=== PATIENT | female | born 1990 | race Native Hawaiian/Other Pacific Islander ===

== ENCOUNTER 2018-01-10 18:35 | Inpatient (IN) | payer OTHER ==
[2018-01-10] MEDS ORDERED: Sodium Chloride 0.9% 1,000 ML IV ONE (20:47)
--- NOTE | 2018-01-10 20:47 | C.PDOC ---
History Of Present Illness Reyes Nielsen is a 27 year old female, who presents to the emergency department complaining of right sided abdominal pain that began since this morning at 11AM. Patient reports she is one month and her last menstrual cycle was on 12/10/2017. Patient states losing consciousness twice, one at home and the second time in the emergency room. Patient denies any chest pain, shortness of breath, headache, fever, chills, cough, nausea, vomiting, diarrhea, changes in bowel habits, dysuria, hematuria, frequency, flank pain, or vaginal bleeding or discharge. Time Seen by Provider: 01/10/18 20:40 Chief Complaint (Nursing): Abdominal Pain History Per: Patient History/Exam Limitations: no limitations Onset/Duration Of Symptoms: Hrs Current Symptoms Are (Timing): Still Present Radiation Of Pain To:: None Associated Symptoms: denies: Fever, Chills, Nausea, Chest Pain Exacerbating Factors: None Alleviating Factors: None Recent travel outside of the [place]: No Abnormal Vaginal Bleeding: No Past Medical History Reviewed: Historical Data, Nursing Documentation, Vital Signs Vital Signs: Last Vital Signs Temp 98.1 F 01/10/18 20:17 Pulse 81 01/10/18 21:53 Resp 15 01/10/18 21:53 BP 108/69 01/10/18 21:53 Pulse Ox 100 01/10/18 21:53 - Medical History PMH: No Chronic Diseases Surgical History: No Surg Hx Family History: States: No Known Family Hx - Social History Hx Tobacco Use: No Hx Alcohol Use: No Hx Substance Use: No Review Of Systems Constitutional: Negative for: Fever, Chills Cardiovascular: Negative for: Chest Pain Respiratory: Negative for: Cough, Shortness of Breath Gastrointestinal: Positive for: Abdominal Pain (right sided abdominal pain). Negative for: Nausea, Vomiting, Diarrhea Genitourinary: Negative for: Dysuria, Frequency, Hematuria, Vaginal Bleeding Skin: Negative for: Rash Neurological: Negative for: Numbness, Headache Physical Exam - Physical Exam Appears: Well, Non-toxic, In Acute Distress Skin: Normal Color, Warm, Dry Head: Atraumatic, Normacephalic Eye(s): bilateral: Normal Inspection, PERRL, EOMI Oral Mucosa: Moist Chest: No Tenderness Cardiovascular: Rhythm Regular (tachycardic), No Murmur Respiratory: Normal Breath Sounds, No Decreased Breath Sounds, No Rales, No Rhonchi, No Wheezing Gastrointestinal/Abdominal: No Normal Exam, Bowel Sounds (high pitch bowel sound ), Tenderness (tenderness on right sided region), No Distention, Guarding Extremity: Normal ROM Neurological/Psych: Oriented x3, Normal Speech, Normal Cognition, Normal Sensation ED Course And Treatment - Laboratory Results Result Diagrams: 01/10/18 21:09 01/10/18 21:09 Lab Interpretation: Abnormal (Elevated WBC, BHCG 430) O2 Sat by Pulse Oximetry: 98 (room air) Pulse Ox Interpretation: Normal - CT Scan/US Pelvic ultrasound Other Rad Studies (CT/US): Read By Radiologist, Radiology Report Reviewed CT/US Interpretation: Accession No. : [id number]. Patient Name / ID : ALO VALIENTE / [id number]. Exam Date : 01/10/2018 21:58:47 ( Approved ). Study Comment : Sex / Age : F / 27Y. Creator : Omid Choe MD. Dictator : Private Inquiry Agent : Sheet Writer : Omid Choe MD. Approver2 : Report Date : 09/2018 22:55:00. My Comment : . [facility] Division of Radiology. [address] [place] [address]. Tel. no. . . . Patient Name: REYES NIELSEN . Pt. Address: [address] [place] [address] Med. Rec #: [id number]. [place] [address]: Mary Jo Mccurdy MD. Pt Phone: Order Location: [facility] : 1990 Female Age: 27 Order #: [id number]. Reason for exam: with abdominal pain. . . . . . Ultrasound. . . PELVIS/TRANSVAG US Exam Date: 01/10/18. . This imaging exam was performed at [facility]. EXAM: US First Trimester, Transabdominal. . CLINICAL HISTORY: 27 years old, female; Pain; Other: Pelvic pain; Gestational age or lmp: 12-10-17; Additional info: with abdominal pain. . TECHNIQUE: Real-time transabdominal obstetrical ultrasound of the maternal pelvis and a. first trimester with image documentation. . COMPARISON: No relevant prior studies available. . FINDINGS: Gestation: No intrauterine gestational sac. Uterus/cervix: Endometrium: 1.9 cm in thickness. Closed cervix. Ovaries: RIGHT ovary: Normal. LEFT ovary: 2.8 x 3.0 x 3.1 cm anechoic. lesion. LEFT ovary: 2.0 x 2.0 x 2.0 cm anechoic lesion. 4.1 x 5.3 x 4.5 cm. heterogeneous lesion within left adnexal region. Free fluid: Small to moderate free fluid within abdomen. Small to moderate. complex free fluid within pelvis. . IMPRESSION: 1. No intrauterine gestation. DDX: Early IUP, missed , ectopic. . 2. Left adnexal lesion, indeterminate. Ectopic not excluded. 3. Complex free fluid, likely hemorrhage. 4. LEFT ovarian cysts. 5. Incidental/ non-acute findings are described above. . . . EXAM: US , Transvaginal. . CLINICAL HISTORY: 27 years old, female; Pain; Other: Pelvic pain; Gestational age or lmp: 12-10-17; Additional info: with abdominal pain. . TECHNIQUE: Real-time transvaginal obstetrical ultrasound of the maternal pelvis and a. first trimester with image documentation. Transvaginal imaging was. used for better evaluation of the fetus and adnexa. . COMPARISON: No relevant prior studies available. . FINDINGS: Gestation: No intrauterine gestational sac. Uterus/cervix: Endometrium: 1.9 cm in thickness. Closed cervix. Ovaries : RIGHT ovary: Normal. LEFT ovary: 2.8 x 3.0 x 3.1 cm anechoic. lesion. LEFT ovary: 2.0 x 2.0 x 2.0 cm anechoic lesion. 4.1 x 5.3 x 4.5 cm. heterogeneous lesion within left adnexal region. Free fluid: Small to moderate free fluid within abdomen. Small to moderate. complex free fluid within pelvis. . IMPRESSION: 1. No intrauterine gestation. DDX: Early IUP, missed , ectopic. . 2. Left adnexal lesion, indeterminate. Ectopic not excluded. 3. Complex free fluid, likely hemorrhage. 4. LEFT ovarian cysts. 5. Incidental/non-acute findings are described above. . Dictated By: Omid Choe MD. Dictated Date/Time: 01/10/182254. Signed By: Omid Choe MD. Date Signed: 01/10/182254. Transcribed By: [employer]. Transcribe Date/Time: 01/10/182254. ACYP02/MT - Physician Consult Information Outcome Of Conversation: Patient was seen by Dr Arellano in ED. Preliminary US done at bedside showing free fluid in pelvis. Patient taken to OR. Medical Decision Making Medical Decision Making: Impression: 27 y/o female with tenderness on right sided region c/o abdominal pain on right side since this morning and is 1 month Plan: -- Ultrasound -- Labs -- Sodium Chloride -- Reassess and disposition Disposition - Disposition Disposition: HOSPITALIZED Disposition Time: 23:04 Condition: SERIOUS - Clinical Impression Clinical Impression: Ruptured ectopic - Scribe Statement The provider has reviewed the documentation as recorded by the Sharona Mcgovernibe Attestation: Toshia Mcgovernibe Attestation: All medical record entries made by the Scribe were at my direction and personally dictated by me. I have reviewed the chart and agree that the record accurately reflects my personal performance of the history, physical exam, medical decision making, and the department course for this patient. I have also personally directed, reviewed, and agree with the discharge instructions and disposition.
[2018-01-10 21:18] LABS: BASO % 0.2 % (0.0-2.0); EOS % 0.1 % (0.0-4.0); HEMOGLOBIN 12.1 g/dL (11.0-16.0); LYMPH # 1.2 K/uL (1.0-4.3); LYMPH % 9.3 % (20.0-40.0); MEAN CELL VOLUME 91.3 fL (81.0-99.0); MEAN CORPUSCULAR HEMOGLOBIN 30.7 pg (27.0-31.0); MEAN CORPUSCULAR HGB CONC 33.6 g/dL (33.0-37.0); MEAN PLATELET VOLUME 10.6 fL (7.2-11.7); MONO # 0.4 K/uL (0.0-0.8); MONO % 2.8 % (0.0-10.0); NEUT # 11.1 K/uL (1.8-7.0); NEUT % 87.6 % (50.0-75.0); PLATELET COUNT 172 K/uL (130-400); RBC 3.93 Mil/uL (3.80-5.20); RED CELL DISTRIBUTION WIDTH 13.4 % (11.5-14.5); WHITE BLOOD COUNT 12.7 K/uL (4.8-10.8)
[2018-01-10 21:31] LABS: ALB/GLOB RATIO 1.3 (1.0-2.1); ALT/SGPT 23 U/L (9-52); AST/SGOT 26 U/L (14-36); BLOOD UREA NITROGEN 12 mg/dL (7-17); CALCIUM 9.2 mg/dl (8.6-10.4); GFR AFRICAN-AMERICAN > 60; GFR NON-AFRICAN AMERICAN > 60
[2018-01-10] MEDS ORDERED: HYDROmorphone 1 mg/ml ISec IVP STA (21:52)
[2018-01-10 22:19] LABS: LYMPHOCYTE 10 % (20-40); MONOCYTE 1 % (0-10); NEUTROPHIL 89 % (50-75); TOTAL CELLS COUNTED 100
[2018-01-10 22:20] LABS: PLATELET ESTIMATE NORMAL (NORMAL)
--- NOTE | 2018-01-10 22:24 | CP.PCM.HP ---
History of Present Illness - History of Present Illness History of Present Illness: 27 y/o G1 witg LMP 12/10/2017 presents to ER with c/o severe right lower qudrant pain since morning.Patient states that pain started suddenly when she woke up and was eating breakfast.She had an episode of passing out at home and hence came to ER.Pain is 10/10 Patient had another episode of fainting in the ER She feels weak and tired PMH denies PSH denies OBGYN HX Social hx denies tobacco,alcohol or illicit drug use Present on Admission - Present on Admission Any Indicators Present on Admission: No Review of Systems - Review of Systems Systems not reviewed;Unavailable: Unstable Vital Signs - Cardiovascular Cardiovascular: absent: Chest Pain, Palpitations - Respiratory Respiratory: absent: Cough, Dyspnea - Gastrointestinal Gastrointestinal: Nausea. absent: Abdominal Pain, Vomiting - Reproductive: Female Reproductive:Female: Amenorrhea Past Patient History - Past Social History Smoking Status: Never Smoked - CARDIAC Hx Cardiac Disorders: No - PULMONARY Hx Respiratory Disorders: No - NEUROLOGICAL Hx Neurological Disorder: No - HEENT Hx HEENT Problems: No - RENAL Hx Chronic Kidney Disease: No - ENDOCRINE/METABOLIC Hx Endocrine Disorders: No - HEMATOLOGICAL/ONCOLOGICAL Hx Blood Disorders: No - INTEGUMENTARY Hx Dermatological Problems: No - MUSCULOSKELETAL/RHEUMATOLOGICAL Hx Musculoskeletal Disorders: No - GASTROINTESTINAL Hx Gastrointestinal Disorders: No - GENITOURINARY/GYNECOLOGICAL Hx Genitourinary Disorders: No - PSYCHIATRIC Hx Psychophysiologic Disorder: No Hx Substance Use: No - SURGICAL HISTORY Hx Surgeries: No - ANESTHESIA Hx Anesthesia: No Meds Allergies/Adverse Reactions: Allergies Allergy/AdvReac Type Severity Reaction Status Date / Time No Known Allergies Allergy Verified 01/10/18 20:47 Physical Exam - Constitutional Appears: Non-toxic - Head Exam Head Exam: ATRAUMATIC - Respiratory Exam Respiratory Exam: NORMAL BREATHING PATTERN - Cardiovascular Exam Cardiovascular Exam: REGULAR RHYTHM - GI/Abdominal Exam GI & Abdominal Exam: Rebound, Rigid, Soft, Tenderness - Extremities Exam Extremities exam: Negative for: calf tenderness - Neurological Exam Neurological exam: Alert, Oriented x3 - Psychiatric Exam Psychiatric exam: Normal Affect, Normal Mood - Skin Skin Exam: Pallor Results - Vital Signs Recent Vital Signs: Last Vital Signs Temp 98.1 F 01/10/18 20:17 Pulse 81 01/10/18 21:53 Resp 15 02/11/18 21:53 BP 108/69 01/10/18 21:53 Pulse Ox 100 01/10/18 21:53 - Labs Result Diagrams: 01/10/18 21:09 01/10/18 21:09 Labs: Laboratory Results - last 24 hr 01/10/18 01/10/18 01/10/18 21:09 21:09 21:09 WBC 12.7 H RBC 3.93 Hgb 12.1 Hct 35.9 MCV 91.3 MCH 30.7 MCHC 33.6 RDW 13.4 Plt Count 172 MPV 10.6 Neut % (Auto) 87.6 H Lymph % (Auto) 9.3 L Josephine % (Auto) 2.8 Eos % (Auto) 0.1 Baso % (Auto) 0.2 Neut # (Auto) 11.1 H Lymph # (Auto) 1.2 Josephine # (Auto) 0.4 Eos # (Auto) 0.0 Baso # (Auto) 0.0 Sodium 132 Potassium 3.5 L Chloride 98 Carbon Dioxide 20 L Anion Gap 17 BUN 12 Creatinine 0.6 L Est GFR ( Amer) > 60 Est GFR (Non-Af Amer) > 60 Random Glucose 133 H Calcium 9.2 Total Bilirubin 1.1 AST 26 ALT 23 Alkaline Phosphatase 53 Total Protein 7.1 Albumin 4.0 Globulin 3.1 Albumin/Globulin Ratio 1.3 Beta HCG, Quant 430.57 Blood Type O POSITIVE Antibody Screen Negative Assessment & Plan - Assessment and Plan (Free Text) Assessment: 27 y/o female with LMP 12/10/2017, presents to er with abdominal pain -acute abdomen on exam -ultrasound done.,complex fluid in the pelvis with ascites ?ruptured ectopic versus ruptured cyst findings discussed with patient reviewed need for surgical intervention Patient voices understanding the need for surgical intervention discussed exlap with possible salpingectomy, possible salpingo-oophorectomy with possible other procedures Risks of surgery discussed with patient type and cross for 2 units
[2018-01-10] MEDS ORDERED: Propofol 10 mg/ml Inj (20 ML) ONE (22:46)
[2018-01-10] MEDS ORDERED: ceFAZolin 1 gm in NS 1 GM/100 ML BAG IVPB ONE (22:46)
[2018-01-10] MEDS ORDERED: Midazolam 2 MG/2 ML VIAL ONE (22:50)
[2018-01-10] MEDS ORDERED: Succinylcholine Chloride 20 mg/ml Syr (5 ml) IV ONE (22:50)
[2018-01-10] MEDS ORDERED: Phenylephrine 10 mg/ml Inj ONE (22:50)
--- NOTE | 2018-01-10 22:56 | US ---
EXAM: US First Trimester, Transabdominal CLINICAL HISTORY: 27 years old, female; Pain; Other: Pelvic pain; Gestational age or lmp: 18; Additional info: with abdominal pain TECHNIQUE: Real-time transabdominal obstetrical ultrasound of the maternal pelvis and a first trimester with image documentation. COMPARISON: No relevant prior studies available. FINDINGS: Gestation: No intrauterine gestational sac. Uterus/cervix: Endometrium: 1.9 cm in thickness. Closed cervix. Ovaries: RIGHT ovary: Normal. LEFT ovary: 2.8 x 3.0 x 3.1 cm anechoic lesion. LEFT ovary: 2.0 x 2.0 x 2.0 cm anechoic lesion. 4.1 x 5.3 x 4.5 cm heterogeneous lesion within left adnexal region. Free fluid: Small to moderate free fluid within abdomen. Small to moderate complex free fluid within pelvis. IMPRESSION: 1. No intrauterine gestation. DDX: Early IUP, missed , ectopic . 2. Left adnexal lesion, indeterminate. Ectopic not excluded. 3. Complex free fluid, likely hemorrhage. 4. LEFT ovarian cysts. 5. Incidental/non-acute findings are described above. EXAM: US , Transvaginal CLINICAL HISTORY: 27 years old, female; Pain; Other: Pelvic pain; Gestational age or lmp: 18; Additional info: with abdominal pain TECHNIQUE: Real-time transvaginal obstetrical ultrasound of the maternal pelvis and a first trimester with image documentation. Transvaginal imaging was used for better evaluation of the fetus and adnexa. COMPARISON: No relevant prior studies available. FINDINGS: Gestation: No intrauterine gestational sac. Uterus/cervix: Endometrium: 1.9 cm in thickness. Closed cervix. Ovaries: RIGHT ovary: Normal. LEFT ovary: 2.8 x 3.0 x 3.1 cm anechoic lesion. LEFT ovary: 2.0 x 2.0 x 2.0 cm anechoic lesion. 4.1 x 5.3 x 4.5 cm heterogeneous lesion within left adnexal region. Free fluid: Small to moderate free fluid within abdomen. Small to moderate complex free fluid within pelvis.
[2018-01-10] MEDS ORDERED: ePHEDrine 50 mg/ml Inj ONE (23:24)
[2018-01-10] MEDS ORDERED: Neostigmine Methylsulfate 3mg/3ml Syringe IV ONE (23:33)
[2018-01-11] MEDS ORDERED: Oxycodone/Acetaminophen 5/325 mg Tab PO PRN (00:31)
[2018-01-11] MEDS ORDERED: HYDROmorphone 0.5 mg/0.5 ml ISec ONE (00:42)
[2018-01-11] MEDS ORDERED: cefOXitin IV 1 gm in Dextrose 1 GM/50 ML BAG IVPB SCH ×2 (00:45→07:45)
[2018-01-11 06:28] LABS: BASO % 0.2 % (0.0-2.0); MONO # 0.7 K/uL (0.0-0.8); MONO % 4.2 % (0.0-10.0)
[2018-01-11 06:35] LABS: LYMPH # 1.7 K/uL (1.0-4.3); MEAN CELL VOLUME 91.9 fL (81.0-99.0); MEAN CORPUSCULAR HEMOGLOBIN 30.5 pg (27.0-31.0); MEAN CORPUSCULAR HGB CONC 33.2 g/dL (33.0-37.0); MEAN PLATELET VOLUME 10.5 fL (7.2-11.7); NEUT # 14.4 K/uL (1.8-7.0); NEUT % 85.6 % (50.0-75.0); RBC 2.6 Mil/uL (3.80-5.20); RED CELL DISTRIBUTION WIDTH 13.1 % (11.5-14.5); WHITE BLOOD COUNT 16.8 K/uL (4.8-10.8)
[2018-01-11 06:52] LABS: HEMOGLOBIN 7.9 g/dL (11.0-16.0)
[2018-01-11] MEDS ORDERED: DiphenhydrAMINE 50 mg/ml Inj IVP PRN (07:21)
[2018-01-11] MEDS ORDERED: Naloxone 0.4 mg/ml Inj (Adult) IVP PRN (07:21)
[2018-01-11] MEDS ORDERED: Sodium Chloride 0.9% 1,000 ML IV ONE (08:47)
--- NOTE | 2018-01-11 08:47 | CP.PCM.PN ---
<Yane Love - Last Filed: 01/11/18 08:47> Subjective - Date & Time of Evaluation Date of Evaluation: 01/11/18 Time of Evaluation: 09:00 - Subjective Subjective: [employer] progess note Patient seen and examined at bedside. Patient had surgery late last night for apparent ruptured ovarian cyst. Patient still complaining of severe abdominal pain, cramping in nature, similar to what she was experiencing yesterday. Patient is lethargic, weak, though responding to questions appropriately. Denies chest pain, shortness of breath, fever, or chills, nausea, vomiting. 12- point ROS was obtained as was negative, except as above. Objective - Vital Signs/Intake and Output Vital Signs (last 24 hours): Temp Pulse Resp BP Pulse Ox 99.3 F 66 18 83/51 L 100 01/11/18 08:29 01/11/18 08:26 01/11/18 08:26 01/11/18 08:26 01/11/18 08:04 Intake and Output: 01/11/18 01/11/18 06:59 18:59 Intake Total 1950 975 Output Total 100 200 Balance 1850 775 - Medications Medications: Current Medications Acetaminophen (Tylenol 325mg Tab) 975 mg PO Q6 PRN PRN Reason: Pain, moderate (4-7) Last Admin: 01/11/18 08:29 Dose: 975 mg Diphenhydramine HCl (Benadryl) 25 mg IVP Q6 PRN PRN Reason: Itching / Pruritus Last Admin: 01/11/18 08:27 Dose: 25 mg Docusate Sodium (Colace) 100 mg PO BID [facility] Cefoxitin Sodium (Mefoxin Iv 1 Gm Duplex) 1 gm in 50 mls @ 50 mls/hr IVPB Q8H [facility] Stop: 01/12/18 00:44 Ketorolac Tromethamine (Toradol) 30 mg IVP Q6 PRN PRN Reason: Pain, severe (8-10) Last Admin: 01/11/18 04:52 Dose: 30 mg Naloxone HCl (Narcan) 0.1 mg IVP Q2M PRN PRN Reason: apnea Ondansetron HCl (Zofran Inj) 4 mg IVP Q8H PRN PRN Reason: Nausea/Vomiting Simethicone (Mylicon Chew Tab) 80 mg PO QID [facility] - Labs Labs: 01/11/18 06:24 01/10/18 21:09 - Constitutional Appears: Non-toxic, In Acute Distress (moderate) - Head Exam Head Exam: ATRAUMATIC, NORMOCEPHALIC - Eye Exam Eye Exam: EOMI, Normal appearance, PERRL Additional comments: Conjunctival pallor - ENT Exam ENT Exam: Mucous Membranes Moist - Neck Exam Neck Exam: Normal Inspection - Respiratory Exam Respiratory Exam: Clear to Ausculation Bilateral, NORMAL BREATHING PATTERN - Cardiovascular Exam Cardiovascular Exam: RRR, +S1, +S2. absent: Bradycardia, Tachycardia - GI/Abdominal Exam GI & Abdominal Exam: Guarding, Soft, Tenderness (Severe, bilateral lower quadrants). absent: Distended, Firm, Rigid, Rebound Additional comments: No fluid wave - Extremities Exam Extremities Exam: Normal Capillary Refill. absent: Calf Tenderness, Pedal Edema Additional comments: Warm 4/5 pulses in all four extremities - Neurological Exam Neurological Exam: Awake, Oriented x3 Additional comments: Lethargic, but easily arousable - Psychiatric Exam Additional comments: Unable to assess - Skin Skin Exam: Dry, Intact, Pallor Assessment and Plan - Assessment and Plan (Free Text) Assessment: 27yo female with no significant past medical history who originally presented complaining of right sided abominal pain and syncopal episodes. Secondary to ruptured left ovarian cyst, likely hemorragic corpus luteal cyst, with acute hemorrhagic anemia. Also with elevated bHCG, possible intrauterine Plan: Patient is POD0 s/p minimal exploratory laparotomy with left ovarian cystectomy. Patient is currently hemodynamically stable, borderline low BP; ordered 1L NS bolus H&H dropped acutely overnight; ordered 2u PRBC, consent obtained Tylenol and Toradol for pain management; avoid sedatives at this time Continue Cefoxitin 1gm Q8 for one day Repeat bHCG with AM labs Serial abdominal exams <Errol,Renetta A - Last Filed: 01/11/18 19:27> Objective - Vital Signs/Intake and Output Vital Signs (last 24 hours): Temp Pulse Resp BP Pulse Ox 97.1 F L 68 18 93/58 L 100 01/11/18 16:26 01/11/18 16:26 01/11/18 16:26 01/11/18 16:26 01/11/18 16:26 Intake and Output: 01/11/18 01/12/18 18:59 06:59 Intake Total 4053 Output Total 1800 Balance 2253 - Medications Medications: Current Medications Acetaminophen (Tylenol 325mg Tab) 975 mg PO Q6 PRN PRN Reason: Pain, moderate (4-7) Last Admin: 01/11/18 08:29 Dose: 975 mg Diphenhydramine HCl (Benadryl) 25 mg IVP Q6 PRN PRN Reason: Itching / Pruritus Last Admin: 01/11/18 08:27 Dose: 25 mg Docusate Sodium (Colace) 100 mg PO BID [facility] Last Admin: 01/11/18 17:09 Dose: 100 mg Lactated Ringer's (Lactated Ringer's) 1,000 mls @ 125 mls/hr IV .Q8H [facility] Last Admin: 01/11/18 16:01 Dose: 125 mls/hr Cefoxitin Sodium (Mefoxin Iv 1 Gm Duplex) 1 gm in 50 mls @ 50 mls/hr IVPB Q8H [facility] Stop: 01/12/18 09:29 Last Admin: 01/11/18 16:41 Dose: 50 mls/hr Ketorolac Tromethamine (Toradol) 30 mg IVP Q6 PRN PRN Reason: Pain, severe (8-10) Last Admin: 01/11/18 04:52 Dose: 30 mg Naloxone HCl (Narcan) 0.1 mg IVP Q2M PRN PRN Reason: apnea Ondansetron HCl (Zofran Inj) 4 mg IVP Q8H PRN PRN Reason: Nausea/Vomiting Simethicone (Mylicon Chew Tab) 80 mg PO QID [facility] Last Admin: 01/11/18 17:10 Dose: 80 mg - Labs Labs: 01/11/18 06:24 01/10/18 21:09 Attending/Attestation - Attestation I have personally seen and examined this patient.: Yes I have fully participated in the care of the patient.: Yes I have reviewed all pertinent clinical information, including history, physical exam and plan: Yes Notes (Text): 01/11/18 19:23 At time of this first encounter, patient remained responsive and interactive throughout, despite lethargy. Findings at surgery and procedure performed were discussed at length with her . All of his questions were answered. Also discussed with him at the time was impending blood transfusion. Patient remained in stable condition.
[2018-01-11] MEDS: Simethicone 80 mg Chewtab PO SCH ×4 (09:41→21:48)
--- NOTE | 2018-01-11 09:51 | OP ---
PROCEDURE DATE: 01/10/2018. PREOPERATIVE DIAGNOSES: Acute abdomen, intraabdominal bleeding, ruptured ovarian cyst versus ectopic . POSTOPERATIVE DIAGNOSES: Intraabdominal bleeding and hemorrhagic left ovarian cyst. SURGEON: Dr. Gonzales Arellano. TWISTER DOFFER: Dr. Anders Cardozo. Please note that the procedure required anesthetic assistant to assist with entry into the abdominal cavity, to assist with the dissection, and to assist with the closure of the abdominal wall. The anesthetic assistant was present and scrubbed for the entire duration of the procedure. ANESTHESIA: General endotracheal. ANESTHESIOLOGIST: Dr. Mckeon and Dr. Carmichael. COMPLICATIONS: None. ESTIMATED BLOOD LOSS: 100 mL. SPECIMEN: Left ovarian cyst wall. INTRAOPERATIVE FINDINGS: Approximately 400 mL of blood clots in the anterior and the posterior cul-de-sac, ruptured left hemorrhagic cyst which is bleeding. DESCRIPTION OF PROCEDURE: After informed consent was obtained, the patient was taken to the operating room and placed in dorsal supine position, general anesthesia was induced and the patient was intubated without any difficulty. A Guzmán catheter was placed trans transversely using sterile precaution. She was then prepped and draped in the usual sterile manner. The Pfannenstiel skin incision was made with a scalpel and carried down to the underlying layer of the fascia with the help of the Bovie. The fascia was then incised in the midline and the incision extended laterally with the help of the Bovie as well. The superior aspect of the fascial incision was then grasped with Jim clamp to elevate it and the underlying rectus muscle dissected off. Attention was then turned to the inferior aspect of the fascial incision, which in a similar fashion was grasped with Jim clamp to elevate it and the underlying rectus muscle was dissected off. The rectus muscle was in the midline and the peritoneum was entered. Upon entering in to the peritoneal cavity, olamide blood was noted along with blood clots. This was removed and suctioned. The packed away, normal appearing appendix was noticed at this point. The right fallopian tube was inspected and found to be completely normal, so was the right ovaries. The left fallopian tubes was inspected and found to be totally normal as well. The left ovary was enlarged and had ruptured cyst from which she was bleeding. At this point, the cyst wall was peeled off from the ovarian capsule. The remaining edges of the ovarian capsule from which the cyst had burst which was bleeding, was sutured ligated with 2-0 Vicryl and eventually closed with 2-0 chromic. Adequate hemostasis was noted from the repair site. The pelvis was irrigated and suctioned. Surgicel was placed over the left ovary at the site of the closure. The peritoneum was thereafter closed with 2-0 chromic in a running fashion. The muscle layer was reapproximated with 2-0 Chromic in a running fashion. The fascia was closed with 0 Vicryl in a running fashion. The skin was closed with 4-0 Monocryl in a subcuticular manner. The sponge, lap, needle, and instrument counts were correct x3 as reported to me at the end of the procedure. The patient tolerated the procedure well, and the patient was extubated and taken to the recovery room in stable condition. Gonzales Arellano MD
--- NOTE | 2018-01-11 15:56 | CP.PCM.PN ---
<Yane Love - Last Filed: 01/11/18 15:58> Subjective - Date & Time of Evaluation Date of Evaluation: 01/11/18 Time of Evaluation: 15:30 - Subjective Subjective: ENGLISH [employer]Y progress note Patient seen and examined at bedside after further management. She has now received fluid bolus and 2 units PRBC. Patient is much more awake and alert, feels much better overall. Reports that pain is down to 2-3/10, compared to 8- 10 previously. She is requesting a diet. She denies any chest pain, shortness of breath, fever, or chills. Objective - Vital Signs/Intake and Output Vital Signs (last 24 hours): Temp Pulse Resp BP Pulse Ox 98.8 F 75 20 93/54 L 100 01/11/18 15:01/11/18 15:01/11/18 15:01/11/18 15:01/11/18 08:04 Intake and Output: 01/11/18 01/11/18 06:59 18:59 Intake Total 1950 1665 Output Total 100 200 Balance 1850 1465 - Medications Medications: Current Medications Acetaminophen (Tylenol 325mg Tab) 975 mg PO Q6 PRN PRN Reason: Pain, moderate (4-7) Last Admin: 01/11/18 08:29 Dose: 975 mg Diphenhydramine HCl (Benadryl) 25 mg IVP Q6 PRN PRN Reason: Itching / Pruritus Last Admin: 01/11/18 08:27 Dose: 25 mg Docusate Sodium (Colace) 100 mg PO BID [facility] Last Admin: 01/11/18 11:18 Dose: Not Given Cefoxitin Sodium (Mefoxin Iv 1 Gm Duplex) 1 gm in 50 mls @ 50 mls/hr IVPB Q8H [facility] Lactated Ringer's (Lactated Ringer's) 1,000 mls @ 125 mls/hr IV .Q8H [facility] Ketorolac Tromethamine (Toradol) 30 mg IVP Q6 PRN PRN Reason: Pain, severe (8-10) Last Admin: 01/11/18 04:52 Dose: 30 mg Naloxone HCl (Narcan) 0.1 mg IVP Q2M PRN PRN Reason: apnea Ondansetron HCl (Zofran Inj) 4 mg IVP Q8H PRN PRN Reason: Nausea/Vomiting Simethicone (Mylicon Chew Tab) 80 mg PO QID [facility] Last Admin: 01/11/18 14:21 Dose: Not Given - Labs Labs: 01/11/18 06:24 01/10/18 21:09 - Constitutional Appears: Non-toxic, No Acute Distress - Head Exam Head Exam: ATRAUMATIC, NORMOCEPHALIC - Eye Exam Eye Exam: EOMI, Normal appearance, PERRL Additional comments: No conjunctival pallor - ENT Exam ENT Exam: Mucous Membranes Moist - Neck Exam Neck Exam: Normal Inspection - Respiratory Exam Respiratory Exam: Clear to Ausculation Bilateral, NORMAL BREATHING PATTERN - Cardiovascular Exam Cardiovascular Exam: RRR, +S1, +S2 - GI/Abdominal Exam GI & Abdominal Exam: Soft, Tenderness (moderate, bilateral lower quadrant). absent: Distended, Firm, Guarding, Rigid, Rebound - Extremities Exam Extremities Exam: Normal Capillary Refill. absent: Calf Tenderness, Pedal Edema Additional comments: Pulses 4/5 in all four extremities - Neurological Exam Neurological Exam: Alert, Awake, Oriented x3 - Psychiatric Exam Psychiatric exam: Normal Affect, Normal Mood - Skin Skin Exam: Dry, Intact, Normal Color Assessment and Plan - Assessment and Plan (Free Text) Assessment: 27yo female with no significant past medical history who originally presented complaining of right sided abominal pain and syncopal episodes. Secondary to ruptured left ovarian cyst, likely hemorragic corpus luteal cyst, with acute hemorrhagic anemia. POD0 s/p minimal exploratory laparotomy with left ovarian cystectomy. Also with elevated bHCG, possible intrauterine Plan: s/p 2u PRBC; tolerated well, without complications Recheck CBC in 4 hours; recheck with AM labs BP, mentation, and color dramatically improved Continue pain regimen Continue Cefoxitin 1gm Q8 for one day Repeat bHCG with AM labs Patient will require progesterone supplementation to maintain Serial abdominal exams Discussed with patient at length about her current condition and the ruptured cyst, as well as how it may impact her . Instructed patient on obtaining care and she verbalized understanding and agreement <Renetta Norton - Last Filed: 01/11/18 19:40> Objective - Vital Signs/Intake and Output Vital Signs (last 24 hours): Temp Pulse Resp BP Pulse Ox 97.1 F L 68 18 93/58 L 100 02/12/18 16:26 01/11/18 16:26 01/11/18 16:26 01/11/18 16:26 01/11/18 16:26 Intake and Output: 01/11/18 01/12/18 18:59 06:59 Intake Total 4053 Output Total 1800 Balance 2253 - Medications Medications: Current Medications Acetaminophen (Tylenol 325mg Tab) 975 mg PO Q6 PRN PRN Reason: Pain, moderate (4-7) Last Admin: 01/11/18 08:29 Dose: 975 mg Diphenhydramine HCl (Benadryl) 25 mg IVP Q6 PRN PRN Reason: Itching / Pruritus Last Admin: 01/11/18 08:27 Dose: 25 mg Docusate Sodium (Colace) 100 mg PO BID [facility] Last Admin: 01/11/18 17:09 Dose: 100 mg Lactated Ringer's (Lactated Ringer's) 1,000 mls @ 125 mls/hr IV .Q8H [facility] Last Admin: 01/11/18 16:01 Dose: 125 mls/hr Cefoxitin Sodium (Mefoxin Iv 1 Gm Duplex) 1 gm in 50 mls @ 50 mls/hr IVPB Q8H [facility] Stop: 01/12/18 09:29 Last Admin: 01/11/18 16:41 Dose: 50 mls/hr Ketorolac Tromethamine (Toradol) 30 mg IVP Q6 PRN PRN Reason: Pain, severe (8-10) Last Admin: 01/11/18 04:52 Dose: 30 mg Naloxone HCl (Narcan) 0.1 mg IVP Q2M PRN PRN Reason: apnea Ondansetron HCl (Zofran Inj) 4 mg IVP Q8H PRN PRN Reason: Nausea/Vomiting Simethicone (Mylicon Chew Tab) 80 mg PO QID [facility] Last Admin: 01/11/18 17:10 Dose: 80 mg - Labs Labs: 01/11/18 06:24 01/10/18 21:09 Attending/Attestation - Attestation I have personally seen and examined this patient.: Yes I have fully participated in the care of the patient.: Yes I have reviewed all pertinent clinical information, including history, physical exam and plan: Yes Notes (Text): 01/11/18 19:29 Patient's physical and mental status is as described above; I agree. Patient was able to recount all of the events that lead up to and involving her surgery. This is a desired ; to this end, follow up to ascertain development was discussed with serial quantitative HCG levels every 48 hours until ultrasound can establish its location. Also, in light of non functioning corpus luteal cyst, patient needs prometrium to support in first 2 trimesters. Patient expressed an understanding and agrees. Patient in stable condition.
[2018-01-11] MEDS: Lactated Ringer's 1,000 ML IV SCH ×2 (16:01→22:07)
[2018-01-11] MEDS: cefOXitin IV 1 gm in Dextrose 1 GM/50 ML BAG IVPB SCH ×2 (16:41→23:47)
[2018-01-11 19:47] LABS: BASO % 0.2 % (0.0-2.0); EOS % 0.1 % (0.0-4.0); HEMOGLOBIN 8.8 g/dL (11.0-16.0); LYMPH # 1.9 K/uL (1.0-4.3); LYMPH % 18.4 % (20.0-40.0); MEAN CELL VOLUME 89.2 fL (81.0-99.0); MEAN CORPUSCULAR HEMOGLOBIN 31.1 pg (27.0-31.0); MEAN CORPUSCULAR HGB CONC 34.9 g/dL (33.0-37.0); MEAN PLATELET VOLUME 10.4 fL (7.2-11.7); MONO # 0.7 K/uL (0.0-0.8); MONO % 6.3 % (0.0-10.0); NEUT # 7.9 K/uL (1.8-7.0); RBC 2.83 Mil/uL (3.80-5.20); RED CELL DISTRIBUTION WIDTH 14.2 % (11.5-14.5); WHITE BLOOD COUNT 10.5 K/uL (4.8-10.8)
[2018-01-12 07:22] LABS: BASO % 0.3 % (0.0-2.0); EOS % 0.3 % (0.0-4.0); HEMOGLOBIN 8.3 g/dL (11.0-16.0); LYMPH # 1.3 K/uL (1.0-4.3); LYMPH % 15.5 % (20.0-40.0); MEAN CELL VOLUME 89.3 fL (81.0-99.0); MEAN CORPUSCULAR HEMOGLOBIN 31.1 pg (27.0-31.0); MEAN CORPUSCULAR HGB CONC 34.8 g/dL (33.0-37.0); MONO # 0.5 K/uL (0.0-0.8); MONO % 6.1 % (0.0-10.0); NEUT # 6.5 K/uL (1.8-7.0); NEUT % 77.8 % (50.0-75.0); RBC 2.66 Mil/uL (3.80-5.20); RED CELL DISTRIBUTION WIDTH 14.3 % (11.5-14.5); WHITE BLOOD COUNT 8.4 K/uL (4.8-10.8)
[2018-01-12] MEDS: cefOXitin IV 1 gm in Dextrose 1 GM/50 ML BAG IVPB SCH (08:31)
--- NOTE | 2018-01-12 09:12 | CP.PCM.PN ---
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 Per nursing staff, no acute events overnight. Patient is much more awake and alert. She was seen sitting up in bed. Still complaining of mild abdominal pain, 1-2/10 in severity, worse when she moves. She is requesting advancement of her diet. She reports passing flatus , but no bowel movement. She has not yet been out of bed. She denies any chest pain, shortness of breath, cough, fever, chills, diarrhea, constipation. Objective - Vital Signs/Intake and Output Vital Signs (last 24 hours): Temp Pulse Resp BP Pulse Ox 98.9 F 80 18 92/56 L 99 01/12/18 07:28 01/12/18 07:28 01/12/18 07:28 01/12/18 07:28 01/12/18 07:28 Intake and Output: 01/12/18 01/12/18 06:59 18:59 Intake Total 1850 Output Total 1400 Balance 450 - Medications Medications: Current Medications Acetaminophen (Tylenol 325mg Tab) 975 mg PO Q6 PRN PRN Reason: Pain, moderate (4-7) Last Admin: 01/11/18 22:06 Dose: 975 mg Diphenhydramine HCl (Benadryl) 25 mg IVP Q6 PRN PRN Reason: Itching / Pruritus Last Admin: 01/11/18 08:27 Dose: 25 mg Docusate Sodium (Colace) 100 mg PO BID [facility] Last Admin: 01/11/18 17:09 Dose: 100 mg Cefoxitin Sodium (Mefoxin Iv 1 Gm Duplex) 1 gm in 50 mls @ 50 mls/hr IVPB Q8H [facility] Stop: 01/12/18 09:29 Last Admin: 01/12/18 08:31 Dose: 50 mls/hr Ketorolac Tromethamine (Toradol) 30 mg IVP Q6 PRN PRN Reason: Pain, severe (8-10) Last Admin: 01/11/18 20:27 Dose: 30 mg Naloxone HCl (Narcan) 0.1 mg IVP Q2M PRN PRN Reason: apnea Ondansetron HCl (Zofran Inj) 4 mg IVP Q8H PRN PRN Reason: Nausea/Vomiting Simethicone (Mylicon Chew Tab) 80 mg PO QID [facility] Last Admin: 01/11/18 21:48 Dose: 80 mg - Labs Labs: 01/12/18 07:06 01/10/18 21:09 - Constitutional Appears: Non-toxic, No Acute Distress - Head Exam Head Exam: ATRAUMATIC, NORMOCEPHALIC - Eye Exam Eye Exam: EOMI, Normal appearance, PERRL - ENT Exam ENT Exam: Mucous Membranes Moist - Neck Exam Neck Exam: Normal Inspection - Respiratory Exam Respiratory Exam: Clear to Ausculation Bilateral, NORMAL BREATHING PATTERN - Cardiovascular Exam Cardiovascular Exam: RRR, +S1, +S2 - GI/Abdominal Exam GI & Abdominal Exam: Soft, Tenderness (mild, lower abdomen), Normal Bowel Sounds. absent: Distended, Firm, Guarding, Rigid, Rebound - Extremities Exam Extremities Exam: Normal Capillary Refill. absent: Calf Tenderness, Pedal Edema Additional comments: Warm 4/5 pulses in all four extremities - Neurological Exam Neurological Exam: Alert, Awake, Oriented x3 - Psychiatric Exam Psychiatric exam: Normal Affect, Normal Mood - Skin Skin Exam: Dry, Intact, Normal Color Assessment and Plan - Assessment and Plan (Free Text) Assessment: 27yo female with no significant past medical history who originally presented complaining of right sided abominal pain and syncopal episodes. Secondary to ruptured left ovarian cyst, likely hemorragic corpus luteal cyst, with acute hemorrhagic anemia. POD1 s/p minimal exploratory laparotomy with left ovarian cystectomy. Also with elevated bHCG, possible intrauterine Plan: s/p 2u PRBC; tolerated well, without complications Posttransfusion CBC shows appropriate elevation in H&H; H&H this AM slightly decreased since yesterday, likely dilutional VSS, no signs of active bleeding; abdominal exam remarkable only for post-op tenderness; no peritoneal signs Patient tolerating diet; discontinue IVF; advance diet as tolerated Recheck CBC with AM labs Continue pain regimen Repeat bHCG trending up; this is a desired ; f/u with serial quant. bHCG every 48 hours Continue progesterone supplementation to maintain Will d/c [place] and encourage patient OOB to chair this afternoon
[2018-01-12] MEDS: Simethicone 80 mg Chewtab PO SCH ×4 (10:04→21:27)
[2018-01-12] MEDS ORDERED: Oxycodone/Acetaminophen 5/325 mg Tab PO PRN (13:30)
[2018-01-12 14:19] LABS: BASO % 0.3 % (0.0-2.0); EOS # 0.1 K/uL (0.0-0.7); EOS % 0.6 % (0.0-4.0); HEMOGLOBIN 8.3 g/dL (11.0-16.0); LYMPH # 1.4 K/uL (1.0-4.3); MEAN CORPUSCULAR HEMOGLOBIN 31.2 pg (27.0-31.0); MEAN CORPUSCULAR HGB CONC 34.7 g/dL (33.0-37.0); MEAN PLATELET VOLUME 10.4 fL (7.2-11.7); MONO # 0.7 K/uL (0.0-0.8); MONO % 7.6 % (0.0-10.0); NEUT # 7.3 K/uL (1.8-7.0); NEUT % 76.5 % (50.0-75.0); RBC 2.67 Mil/uL (3.80-5.20); WHITE BLOOD COUNT 9.5 K/uL (4.8-10.8)
[2018-01-12] MEDS: Oxycodone/Acetaminophen 5/325 mg Tab PO PRN (14:32)
[2018-01-12] MEDS: Prenatal Multivit/Folic Acid/Iron Tab PO SCH (18:10)
[2018-01-13] MEDS: Oxycodone/Acetaminophen 5/325 mg Tab PO PRN (00:03)
[2018-01-13 07:17] LABS: HEMOGLOBIN 7.9 g/dL (11.0-16.0); MEAN CELL VOLUME 90.3 fL (81.0-99.0); MEAN CORPUSCULAR HEMOGLOBIN 31.1 pg (27.0-31.0); MEAN CORPUSCULAR HGB CONC 34.4 g/dL (33.0-37.0); MEAN PLATELET VOLUME 10.3 fL (7.2-11.7); RBC 2.54 Mil/uL (3.80-5.20); WHITE BLOOD COUNT 7.8 K/uL (4.8-10.8)
[2018-01-13] MEDS: Simethicone 80 mg Chewtab PO SCH ×4 (10:04→21:58)
[2018-01-13] MEDS: Prenatal Multivit/Folic Acid/Iron Tab PO SCH (10:05)
[2018-01-13] MEDS ORDERED: Bisacodyl 5mg EC Tab PO ONE (13:33)
[2018-01-13 16:53] VITALS: RESP 18
[2018-01-14 07:43] LABS: HEMOGLOBIN 8.2 g/dL (11.0-16.0); MEAN CELL VOLUME 91.1 fL (81.0-99.0); MEAN CORPUSCULAR HEMOGLOBIN 31.1 pg (27.0-31.0); MEAN CORPUSCULAR HGB CONC 34.1 g/dL (33.0-37.0); RBC 2.62 Mil/uL (3.80-5.20); RED CELL DISTRIBUTION WIDTH 13.8 % (11.5-14.5); WHITE BLOOD COUNT 5.7 K/uL (4.8-10.8)
[2018-01-14] MEDS: Prenatal Multivit/Folic Acid/Iron Tab PO SCH (10:02)
[2018-01-14] MEDS: Simethicone 80 mg Chewtab PO SCH (10:03)
--- NOTE | 2018-01-14 10:05 | CP.PCM.DIS ---
Provider - Provider Date of Admission: 01/10/18 21:30 Attending physician: Gonzales Arellano MD Time Spent in preparation of Discharge (in minutes): 45 Diagnosis - Discharge Diagnosis (1) Ruptured cyst of ovary Status: Acute Priority: High Hospital Course - Lab Results Lab Results: Most Recent Lab Values WBC 5.7 K/uL (4.8-10.8) 01/14/18 07:04 RBC 2.62 Mil/uL (3.80-5.20) L 01/14/18 07:04 Hgb 8.2 g/dL (11.0-16.0) L 01/14/18 07:04 Hct 23.9 % (34.0-47.0) L 01/14/18 07:04 MCV 91.1 fL (81.0-99.0) 01/14/18 07:04 MCH 31.1 pg (27.0-31.0) H 01/14/18 07:04 MCHC 34.1 g/dL (33.0-37.0) 01/14/18 07:04 RDW 13.8 % (11.5-14.5) 01/14/18 07:04 Plt Count 120 K/uL (130-400) L 01/14/18 07:04 MPV 10.0 fL (7.2-11.7) 01/14/18 07:04 Neut % (Auto) 76.5 % (50.0-75.0) H 01/12/18 14:06 Lymph % (Auto) 15.0 % (20.0-40.0) L 01/12/18 14:06 Whitley % (Auto) 7.6 % (0.0-10.0) 01/12/18 14:06 Eos % (Auto) 0.6 % (0.0-4.0) 01/12/18 14:06 Baso % (Auto) 0.3 % (0.0-2.0) 01/12/18 14:06 Neut # (Auto) 7.3 K/uL (1.8-7.0) H 01/12/18 14:06 Lymph # (Auto) 1.4 K/uL (1.0-4.3) 01/12/18 14:06 Whitley # (Auto) 0.7 K/uL (0.0-0.8) 01/12/18 14:06 Eos # (Auto) 0.1 K/uL (0.0-0.7) 01/12/18 14:06 Baso # (Auto) 0.0 K/uL (0.0-0.2) 01/12/18 14:06 Neutrophils % (Manual) 89 % (50-75) H 01/10/18 21:09 Lymphocytes % (Manual) 10 % (20-40) L 01/10/18 21:09 Monocytes % (Manual) 1 % (0-10) 01/10/18 21:09 Platelet Estimate Normal (NORMAL) 01/10/18 21:09 RBC Morphology Normal 01/10/18 21:09 Sodium 132 mmol/L (132-148) 01/10/18 21:09 Potassium 3.5 mmol/L (3.6-5.2) L 01/10/18 21:09 Chloride 98 mmol/L (98-107) 01/10/18 21:09 Carbon Dioxide 20 mmol/L (22-30) L 01/10/18 21:09 Anion Gap 17 (10-20) 01/10/18 21:09 BUN 12 mg/dL (7-17) 01/10/18 21:09 Creatinine 0.6 mg/dL (0.7-1.2) L 01/10/18 21:09 Est GFR ( Amer) > 60 01/10/18 21:09 Est GFR (Non-Af Amer) > 60 01/10/18 21:09 Random Glucose 133 mg/dL (65-105) H 01/10/18 21:09 Calcium 9.2 mg/dl (8.6-10.4) 01/10/18 21:09 Total Bilirubin 1.1 mg/dL (0.2-1.3) 01/10/18 21:09 AST 26 U/L (14-36) 01/10/18 21:09 ALT 23 U/L (9-52) 01/10/18 21:09 Alkaline Phosphatase 53 U/L (38-126) 01/10/18 21:09 Total Protein 7.1 g/dL (6.3-8.3) 01/10/18 21:09 Albumin 4.0 g/dL (3.5-5.0) 01/10/18 21:09 Globulin 3.1 gm/dL (2.2-3.9) 01/10/18 21:09 Albumin/Globulin Ratio 1.3 (1.0-2.1) 01/10/18 21:09 Beta HCG, Quant 1338.20 mIU/ML 01/14/18 07:09 Blood Type O POSITIVE 01/10/18 21:09 Blood Type Confirm O POSITIVE 01/10/18 21:09 Antibody Screen Negative 01/10/18 21:09 - Hospital Course Hospital Course: 27 yo F with LMP 12/10/2017 with no significant PMH who initially presented complaining of abdominal pain and two syncopal episodes. Found to have intraabdominal hemorrhage, was taken for exploratory laparotomy, and found to have ruptured hemorragic cyst, likely corpus luteum cyst, which was excised. Upon admission, patient was noted to have elevated bHCG consistent with approximately 4 week , which is a desired . Patient was subsequently started on supplemental progesterone. The following day, patients H &H was noted to be markedly lower than baseline, and she was symptomatic; consent was obtained and patient was transfused with 2 units of blood with appropriate elevation in her H&H. Patient remained hemodynamically stable throughout her hospitalization. She continued to have vaginal bleeding after the transfusion, but her H&H remained stable, and she did not require any further transfusions. Today, patient feels significantly better overall. Her pain is down to 1/10 in severity, but she is able to get in and out of bed and walk around the halls independently and without difficulty. She is tolerating a regular diet with only minimal nausea in the mornings, and has had 3 bowel movements since yesterday morning. She denies any chest pain, shortness of breath, fever, chills , vomiting, diarrhea, or constipation. She is still having some vaginal bleeding , changing her pad 7-8 times day, though the pad is not saturated. Lengthy discussion was had with the patient regarding her , vaginal bleeding, care, adherence to medications, and follow up. She was given prescriptions for iron supplementation, and instructions regarding vitamins and progresterone supplementation. All questions were answered to her satisfaction, and she was discharged to home. Discharge Exam - Head Exam Head Exam: ATRAUMATIC, NORMOCEPHALIC - Eye Exam Eye Exam: EOMI, Normal appearance, PERRL - ENT Exam ENT Exam: Mucous Membranes Moist - Neck Exam Neck exam: Normal Inspection - Respiratory Exam Respiratory Exam: Clear to PA & Lateral, NORMAL BREATHING PATTERN - Cardiovascular Exam Cardiovascular Exam: RRR, +S1, +S2 - GI/Abdominal Exam GI & Abdominal Exam: Soft, Tenderness (minimal). absent: Distended, Firm, Guarding, Rebound, Rigid Additional comments: Lower abdominal transverse incision appears CDI, with mild tenderness without bleeding, erythema, induration, drainage - Extremities Exam Extremities exam: normal inspection - Neurological Exam Neurological exam: Alert, Oriented x3 - Psychiatric Exam Psychiatric exam: Normal Affect, Normal Mood - Skin Skin Exam: Dry, Intact, Normal Color Discharge Plan - Discharge Medications Prescriptions: Ferrous Gluconate [Fergon] 324 mg PO BID #60 tab - Follow Up Plan Condition: FAIR Disposition: HOME/ ROUTINE Additional Instructions: 1. Continue to take iron supplements as prescribed 2. Continue to take Prometrium orally, once daily 3. Continue to take vitamins, as discussed 4. Follow up with [facility] of your choice within one week 5. For any new or worsening concerns, contact your PCP immediately, or return to the ER
[2018-01-14 12:08] VITALS: BP 103/66; PULSE 102; TEMP 99.5; O2SAT 100
== END 2018-01-14 13:28 | disposition home or self-care (01) | DRG 742 ==
LOC: C.ER 18:35 → C.4M 21:30 → C.ER 22:25
PROVIDERS: ADMIT Student in an Organized Health Care Education/Training Program; ATTEND Student in an Organized Health Care Education/Training Program
PROC: 0UB10ZZ Excision of Left Ovary, Open Approach (ICD-10-PCS; principal; 2018-01-11)
DX: N83.12 Corpus luteum cyst of left ovary (principal); D62 Acute posthemorrhagic anemia; R18.8 Other ascites